=== PATIENT | female | born 1995 | race Caucasian/White ===

== ENCOUNTER 2018-07-22 05:56 | Inpatient (IN) | payer MEDICAID ==
[2018-07-22] MEDS ORDERED: OXYTOCIN 10 UNIT/ML VIAL ONE (06:14)
[2018-07-22] MEDS ORDERED: MISOPROSTOL 0.2 MG TABLET ONE (06:14)
[2018-07-22] MEDS ORDERED: LIDOCAINE 1% INJ-PF (10 MG/ML) 30 ML SDV ONE (06:14)
[2018-07-22] MEDS ORDERED: PENICILLIN G-K 5 MILLION UNIT VIAL ONE (06:14)
[2018-07-22] MEDS ORDERED: OXYTOCIN/NORMAL SALINE 20 UNIT/1,000 ML RTUINJ ONE (06:14)
[2018-07-22 06:30] LABS: ABSOLUTE EOSINOPHILS # (AUTO) 0.4 10^3/uL (0.0-0.6); ABSOLUTE LYMPHOCYTES (AUTO) 2.6 10^3/uL (0.5-4.7); ABSOLUTE MONOCYTES (AUTO) 0.9 10^3/uL (0.1-1.4); ABSOLUTE NEUT (AUTO) 6.7 10^3/uL (1.7-8.2); BASOPHILS % (AUTO) 0.4 % (0-2); EOSINOPHILS % (AUTO) 3.4 % (0-6); HEMATOCRIT 34.8 % (36.0-47.0); HEMOGLOBIN 11.6 g/dL (12.0-15.5); LYMPHOCYTES % (AUTO) 24.7 % (13-45); MEAN CORPUSCULAR HEMOGLOBIN 24.4 pg (27.0-33.4); MEAN CORPUSCULAR HGB CONC 33.4 g/dL (32.0-36.0); MEAN CORPUSCULAR VOLUME 73 fl (80-97); MONOCYTES % (AUTO) 8.3 % (3-13); PLATELET COUNT 146 10^3/uL (150-450); RED BLOOD COUNT 4.76 10^6/uL (3.72-5.28); RED CELL DISTRIBUTION WIDTH 16.8 % (11.5-14.0); SEGMENTED NEUTROPHILS % (AUTO) 63.2 % (42-78); TOTAL CELLS COUNTED % (AUTO) 100 %; WHITE BLOOD COUNT 10.6 10^3/uL (4.0-10.5)
--- NOTE | 2018-07-22 06:30 | Admission Physical ---
Datetime Report Generated by CPN: 07/22/2018 06:30 CURRENT ADMISSION Chief Complaint: Uterine Contractions Indication for Induction: Not Applicable Admit Impression : Term, Intrauterine Admit Plan: Admit to Unit; Initiate Labor Protocol ALLERGIES Medication Allergies: No Latex: No Latex Allergies OBSTETRICAL HISTORY EDC: 07/27/2018 00:00 : 2 Para: 1 Term: 1 Livin SEE RECORDS Alcohol: No Marijuana : No Cocaine: No Other Illicit Drugs: No Cigarettes: Never Smoker. [id number] PHYSICAL EXAM General: Normal HEENT: Normal Neurologic: Normal Thyroid: Normal Heart: Normal Lungs: Normal Breast: Normal Back: Normal Abdomen: Normal Genitourinary Exam: Normal Extremities: Normal DTRs: Normal Pelvic Type: Adequate Vital Signs: Reviewed; Within Normal Limits VAGINAL EXAM Dilatation: 8-9 Effacement: 90 Station: 0 Contraction Comments: q 2-3 MEMBRANES Membranes: Intact FETUS A EGA: 39.2 Monitoring: External US FHR- Baseline: 120s Variability: Moderate 6-25bpm Accelerations: 15X15 Decelerations: None Admit Comment: GBS positive PLANS FOR LABOR AND DELIVERY Pain Management: Epidural Feeding Preference: Breast Circumcision: N/A INFORMED CONSENT Signature: with User ID: [email or web address]
[2018-07-22 06:38] LABS: APPEARANCE,URINE CLOUDY; BILIRUBIN,URINE NEGATIVE (NEGATIVE); COLOR,URINE YELLOW; GLUCOSE, URINE NEGATIVE (NEGATIVE); KETONES,URINE NEGATIVE (NEGATIVE); LEUKOCYTE ESTERASE,URINE NEGATIVE (NEGATIVE); NITRITE,URINE NEGATIVE (NEGATIVE); PROTEIN,URINE 100 mg/dL (NEGATIVE); URINE SPECIFIC GRAVITY 1.014; UROBILINOGEN,URINE NEGATIVE mg/dL (<2.0)
[2018-07-22] MEDS ORDERED: PHENYLEPHRINE HCL INJ/PF 10 MG/1 ML SDV ONE (06:47)
[2018-07-22] MEDS ORDERED: BUPIVACAINE HCL 0.25 % INJ/PF (2.5 MG/1 ML) 30 ML VIAL ONE (06:48)
[2018-07-22] MEDS ORDERED: FENTANYL CITRATE INJ/PF 100 MCG/2 ML AMPUL ONE (06:48)
[2018-07-22] MEDS ORDERED: EPHEDRINE SULFATE INJ 50 MG/1 ML AMPULE ONE (06:48)
[2018-07-22 06:53] LABS: URINE AMPHETAMINES SCREEN NEGATIVE; URINE BARBITURATES SCREEN NEGATIVE; URINE BENZODIAZEPINES SCREEN NEGATIVE; URINE COCAINE SCREEN NEGATIVE; URINE MARIJUANA (THC) SCREEN NEGATIVE; URINE METHADONE SCREEN NEGATIVE; URINE PHENCYCLIDINE SCREEN NEGATIVE
[2018-07-22] MEDS ORDERED: LIDOCAINE 1.5%/EPINEPHRINE INJ-PF 30 ML SDV ONE (06:59)
[2018-07-22] MEDS ORDERED: FENTANYL/BUPIVACAINE/NS/PF 300 MCG/150 ML RTUINJ EPI ONE (07:10)
[2018-07-22] MEDS ORDERED: ZOLPIDEM TARTRATE 5 MG TABLET PO PRN (08:20)
[2018-07-22] MEDS ORDERED: OXYTOCIN/NORMAL SALINE 20 UNIT/1,000 ML RTUINJ IV PRN (08:20)
[2018-07-22] MEDS ORDERED: DIPH/PERTUSS(ACELL)/TETANUS VAC/PF 0.5 ML SYR (>=10YO) IM PRN (08:20)
[2018-07-22] MEDS ORDERED: BENZOCAINE/MENTHOL AEROSOL SPRAY 56 ML TOP PRN (08:20)
[2018-07-22] MEDS ORDERED: DIBUCAINE 1% OINTMENT 28 GM TP PRN (08:20)
[2018-07-22] MEDS ORDERED: ACETAMINOPHEN WITH CODEINE #3 TABLET PO PRN ×2 (08:20)
[2018-07-22] MEDS ORDERED: RINGERS SOLUTION,LACTATED 1,000 ML IV PRN (09:01)
--- NOTE | 2018-07-22 11:41 | Delivery Summary ---
Del Sum A-C Datetime Report Generated by CPN: 07/22/2018 11:41 DELIVERY PERSONNEL DELIVERY PERSONNEL: [id number] Delivery Doctor:: Samreen Nixon MD Labor and Delivery Nurse:: Nguyễn Shaw RN Nursery Nurse:: geeta Goodwin RN Nursery Nurse:: Shantal Bone RN Molding Cutter/PRINT LINE OPERATOR: Katherine Manjarrez, EDUCATIONAL FUNDRAISING DIRECTOR MATERNAL INFORMATION Delivery Anesthesia: Epidural Medications After Delivery: Pitocin Drip 20 Units/1000ml NSS Estimated Blood Loss (ml): 300 ml Maternal Complications: Precipitous Labor (<3hrs) Provider Comments: of a viable female at 0808 with an ALMA presentation; APGARS 8, 9; 1st degree right labial lac LABOR SUMMARY EDC: 07/27/2018 00:00 No. Babies in Womb: 1 Labor Anesthesia: Epidural LABOR INFORMATION Reason for Induction: Not Applicable Onset of Labor: 07/22/2018 05:00 Complete Dilatation: 07/22/2018 07:53 Group B Beta Strep: Positive Antibiotics # of Doses: 1 Antibiotics Time of Last Dose: 619 Name of Antibiotic Given: PCN Steroids Given: None Reason Steroids Not Administered: Not Applicable MEMBRANES Membranes Rupture Method: Artificial Rupture of Membranes: 07/22/2018 07:34 Length of Rupture (hr): 0.57 Amniotic Fluid Color: Clear Amniotic Fluid Amount: Moderate Amniotic Fluid Odor: None STAGES OF LABOR Stage 1 hr: 2 Stage 1 min: 53 Stage 2 hr: 0 Stage 2 min: 15 Stage 3 hr: 0 Stage 3 min: 3 Total Time in Labor hr: 3 Total Time in Labor min: 11 VAGINAL DELIVERY Episiotomy: None Laceration #1: Perineal Laceration Extension #1: First Degree Laceration Repair: Yes Laceration Repair Note: 2-0 chromic used to repair right labia majora--1st degree Sponge Count Correct: Yes Sharps Count Correct: Yes CSECTION DELIVERY Primary Indication: N/A Secondary Indication: N/A CSection Incidence: N/A Labor: N/A Elective: N/A CSection Incision: N/A BABY A INFORMATION Infant Delivery Date/Time: 07/22/2018 08:08 Method of Delivery: Vaginal Born in Route : No : N/A Forceps: N/A Vacuum Extraction: N/A Shoulder Dystocia : No PRESENTATION/POSITION BABY A Presentation: Cephalic Cephalic Presentation: Vertex Vertex Position: Left Occipital Anterior Breech Presentation: N/A PLACENTA INFORMATION BABY A Placenta Delivery Time : 07/22/2018 08:11 Placenta Method of Delivery: Expressed Placenta Status: Delivered SCORES BABY A Heart Rate 1 min: >100 bpm Resp Effort 1 min: Good Cry Reflex Irritability 1 min: Cough or Sneeze or Pulls Away Muscle Tone 1 min: Active Motion Color 1 min: Blue/Pale Resuscitation Effort 1 min: Tactile Stimulation SCORE 1 MIN: 8 Heart Rate 5 min: >100 bpm Resp Effort 5 min: Good Cry Reflex Irritability 5 min: Cough or Sneeze or Pulls Away Muscle Tone 5 min: Active Motion Color 5 min: Body [place], Extremities Blue SCORE 5 MIN: 9 INFANT INFORMATION BABY A Gestational Age at Delivery: 39.6 Gestational Status: Full Term- 39- 40.6 Weeks Outcome : Liveborn Infant Condition : Stable Sex: Female IDENTIFICATION BABY A Infant Verification Date/Time: 07/22/2018 08:37 ID Band Number: [id number] Mother's Name Verified: Yes RN Verifying Infant: T. Colin, RN and A. Rodriguez,RN WEIGHT/LENGTH BABY A Infant Birthweight (gm): 3894 Weight (lb): 8 Weight (oz): 9 Length (in): 21.00 Infant Length (cm): 53.34 CORD INFORMATION BABY A No. Cord Vessels: 3 Nuchal Cord : N/A Cord Blood Taken: Yes-For Eval (Mom's Blood Type - or O+) Infant Suction: None ASSESSMENT BABY A Skin to Skin: Yes Skin to Skin Time (min): 60 BABY B INFORMATION : N/A SIGNATURES Signature: with User ID: [email or web address]
[2018-07-22] MEDS: IBUPROFEN 800 MG TABLET PO SCH ×2 (15:03→21:19)
[2018-07-22] MEDS: FERROUS SULFATE 325 MG TABLET PO SCH ×2 (15:05→18:11)
[2018-07-22] MEDS: DOCUSATE SODIUM 100 MG CAPSULE PO SCH ×2 (15:05→18:11)
[2018-07-22] MEDS: PRENATAL VITAMIN W DHA CAPSULE PO SCH (15:05)
[2018-07-22] MEDS: SENNOSIDES/DOCUSATE 8.6-50 MG 1 EACH TABLET PO SCH (15:06)
[2018-07-23] MEDS ORDERED: MAG HYDROX/AL HYDROX/SIMETH SUSP 30 ML UDCUP ONE (03:24)
[2018-07-23] MEDS ORDERED: MAG HYDROX/AL HYDROX/SIMETH SUSP 30 ML UDCUP PO ONE (03:30)
[2018-07-23] MEDS: IBUPROFEN 800 MG TABLET PO SCH ×3 (06:25→22:57)
[2018-07-23 07:56] LABS: HEMATOCRIT 29.9 % (36.0-47.0); HEMOGLOBIN 10.1 g/dL (12.0-15.5); MEAN CORPUSCULAR HEMOGLOBIN 24.7 pg (27.0-33.4); MEAN CORPUSCULAR HGB CONC 33.6 g/dL (32.0-36.0); MEAN CORPUSCULAR VOLUME 74 fl (80-97); PLATELET COUNT 133 10^3/uL (150-450); RED BLOOD COUNT 4.07 10^6/uL (3.72-5.28); RED CELL DISTRIBUTION WIDTH 16.9 % (11.5-14.0); WHITE BLOOD COUNT 10.5 10^3/uL (4.0-10.5)
--- NOTE | 2018-07-23 10:10 | PDOC PROGRESS REPORT ---
Subjective-OB Progress Note for:: 07/23/18 - PP Day #1, doing well, no issues, O neg, rubella Immune Physical Exam (OB) Vital Signs: Temp Pulse Resp BP Pulse Ox 98.1 F 77 18 128/72 H 100 07/23/18 07:39 07/23/18 07:39 07/23/18 07:39 07/23/18 07:39 07/23/18 07:39 Intake & Output 07/22/18 07/23/18 07/24/18 06:59 06:59 06:59 Weight 79.5 kg - General General Appearance: Appears well, Alert In distress: None - PIH/Pre-Eclampsia DTR's: 1 + Clonus: Negative Headache: Absent Epigastric Pain: No Visual Changes: No - Lochia Lochia Amount: Small 10-25 ml Lochia Color: Rubra/Red - Abdomen Description: Soft, Round Hernia Present: No Fundal Description: Firm, Midline Fundal Height: u/u - u/2 - Respiratory Respiratory Status: No respiratory distress - Abdominal Inspection: Normal - Genitourinary Genitourinary Note: voiding - Extremities Upper extremity: Normal inspection Lower extremities: Normal inspection - Neurological Cognition: Normal Orientation: AAOx4 - Psychological Associated symptoms: Normal affect, Normal mood - Skin Skin Temperature: Warm Skin Moisture: Dry Objective-Diagnostic Laboratory: 07/23/18 07:46 07/23/18 07:46 WBC 10.5 RBC 4.07 Hgb 10.1 L Hct 29.9 L MCV 74 L MCH 24.7 L MCHC 33.6 RDW 16.9 H Plt Count 133 L Assessment and Plan(PN) - Assessment and Plan (1) (normal spontaneous vaginal delivery) Is this a current diagnosis for this admission?: Yes (2) Normal course Is this a current diagnosis for this admission?: Yes - Time Spent with Patient Time with patient: Less than 15 minutes - Disposition Anticipated Discharge: Home Within: within 24 hours
[2018-07-23] MEDS: FERROUS SULFATE 325 MG TABLET PO SCH ×2 (10:12→18:07)
[2018-07-23] MEDS: DOCUSATE SODIUM 100 MG CAPSULE PO SCH ×2 (10:12→18:07)
[2018-07-23] MEDS: SENNOSIDES/DOCUSATE 8.6-50 MG 1 EACH TABLET PO SCH (10:12)
[2018-07-23] MEDS: PRENATAL VITAMIN W DHA CAPSULE PO SCH (10:14)
[2018-07-24 00:35] VITALS: BP 127/68
[2018-07-24] MEDS: IBUPROFEN 800 MG TABLET PO SCH (06:59)
[2018-07-24] MEDS: PRENATAL VITAMIN W DHA CAPSULE PO SCH (09:54)
[2018-07-24] MEDS: DOCUSATE SODIUM 100 MG CAPSULE PO SCH (09:54)
[2018-07-24] MEDS: SENNOSIDES/DOCUSATE 8.6-50 MG 1 EACH TABLET PO SCH (09:54)
[2018-07-24] MEDS: FERROUS SULFATE 325 MG TABLET PO SCH (09:54)
--- NOTE | 2018-07-24 10:02 | PDOC DISCHARGE SUMMARY ---
Final Diagnosis Discharge Date: 07/24/18 - PP Day#2, doing well, , O negative, Rubella immune - Final Diagnosis (1) (normal spontaneous vaginal delivery) Is this a current diagnosis for this admission?: Yes (2) Normal course Is this a current diagnosis for this admission?: Yes Discharge Data - Discharge Medication Prescriptions: Ibuprofen [Motrin 800 mg Tablet] 800 mg PO Q8 #60 tablet Home Medications: Pnv No.95/Ferrous Fum/Folic AC [ Multivitamin Tablet] 1 each PO DAILY 07/22/18 Ibuprofen [Motrin 800 mg Tablet] 800 mg PO Q8 #60 tablet 07/24/18 Reason(s) for Admission: Onset of Labor Procedures: Ultrasound Intrapartum Procedure(s): Spontaneous Vaginal Delivery Complication(s): Laceration-Vaginal Laceration-Degree: 1st - Diagnosis Test Laboratory: Temp Pulse Resp BP Pulse Ox 98.8 F 68 18 127/68 H 97 07/23/18 20:00 07/23/18 20:00 07/23/18 20:00 07/23/18 20:00 07/23/18 20:00 07/22/18 07/22/18 07/23/18 06:05 06:20 07:46 RBC 4.76 4.07 Hgb 11.6 L 10.1 L Hct 34.8 L 29.9 L Urine Opiates Screen NEGATIVE - Discharge information/Instructions Discharge Activity: Activity As Tolerated, No Lifting Over 10 Pounds, Pelvic Rest Discharge Diet: As Tolerated, Regular Disposition: HOME, SELF-CARE Follow up with: [facility] in: 4, Weeks
== END 2018-07-24 13:00 | disposition home or self-care (01) | DRG 807 ==
LOC: LC 05:56 → LR 06:12 → 2S 11:23
PROVIDERS: ADMIT Obstetrics & Gynecology; ATTEND Obstetrics & Gynecology
PROC: 10E0XZZ Delivery of Products of Conception, External Approach (ICD-10-PCS; principal; 2018-07-22)
PROC: 0HQ9XZZ Repair Perineum Skin, External Approach (ICD-10-PCS; 2018-07-22)
PROC: 4A1HXCZ Monitoring of Products of Conception, Cardiac Rate, External Approach (ICD-10-PCS; 2018-07-22)
DX: O62.3 Precipitate labor (principal); Z37.0 Single live birth; O70.0 First degree perineal laceration during delivery; O99.824 Streptococcus B carrier state complicating childbirth; Z3A.39 39 weeks gestation of pregnancy
CPT/HCPCS: 36415; 80307; 81005; 85025; 85027; 86592; 86850; 86900; 86901; J2370; J2540; J2590; J3010; J3490

== ENCOUNTER 2018-07-25 04:19 | Emergency (ER) | payer MEDICAID ==
--- NOTE | 2018-07-25 04:58 | ER Document Report ---
ED General - General Chief Complaint: Vaginal Bleeding Stated Complaint: VAGINAL BLEEDING/CLOTTING Time Seen by Provider: 07/25/18 04:34 Mode of Arrival: Ambulatory Information source: Patient Notes: 23-year-old female day 3 presents with complaints of a mass hanging from her vagina that will not come out. Patient states that she has had mild vaginal bleeding since her spontaneous vaginal delivery 3 days ago but that this evening she went to the bathroom and noticed a mass hanging from her vagina. She states that she tried to pull on it but it would not move. Patient denies fever, chills, nausea, vomiting, increased abdominal pain. TRAVEL OUTSIDE OF THE [place] IN LAST 30 DAYS: No - HPI Onset: Just prior to arrival Onset/Duration: Sudden Quality of pain: Cramping Severity: Mild Associated symptoms: denies: Nausea, Vomiting Exacerbated by: Denies Relieved by: Denies Similar symptoms previously: No Recently seen / treated by doctor: No - Related Data Allergies/Adverse Reactions: No Known Allergies Allergy (Unverified 07/22/18 07:17) Past Medical History - General Information source: Patient, [facility] Records - Social History Smoking Status: Never Smoker Frequency of alcohol use: None Drug Abuse: None Lives with: Family Family History: Reviewed & Not Pertinent Patient has suicidal ideation: No Patient has homicidal ideation: No - Medical History Medical History: Negative Review of Systems - Review of Systems Notes: REVIEW OF SYSTEMS: CONSTITUTIONAL : Denies fever, chills, or sweats. Denies recent illness. Denies weight loss, recent hospitalizations. EENT: Denies visual changes, eye pain. Denies sore throat, oral lesions, difficulty swallowing. CARDIOVASCULAR: Denies chest pain. Denies palpitations. Denies lower extremity edema. RESPIRATORY: Denies cough. Denies shortness of breath, wheezing. GASTROINTESTINAL: Denies abdominal pain or distention. Denies nausea, vomiting, or diarrhea. Denies blood in vomitus, stools, or per rectum. Denies black, tarry stools. Denies constipation. GENITOURINARY: Denies difficulty urinating, painful urination, frequency, blood in urine, or vaginal discharge. MUSCULOSKELETAL: Denies back or neck pain or stiffness. Denies joint pain or swelling. SKIN: Denies rash, lesions or sores. HEMATOLOGIC : Denies easy bruising or bleeding. LYMPHATIC: Denies swollen glands. NEUROLOGICAL: Denies confusion or altered mental status. Denies loss of consciousness. Denies dizziness or lightheadedness. Denies headache. Denies weakness or paralysis. Denies problems difficulty with ambulation, slurred speech. Denies sensory loss, numbness, or tingling. Denies seizures. PSYCHIATRIC: Denies anxiety or stress. Denies depression, suicidal ideation, or homicidal ideation. Denies visual or auditory hallucinations. Physical Exam - Vital signs Vitals: Temp Pulse Resp BP Pulse Ox 97.9 F 125 H 20 131/84 H 99 07/25/18 04:24 07/25/18 04:24 07/25/18 04:24 07/25/18 04:24 07/25/18 04:24 - Notes Notes: PHYSICAL EXAMINATION: GENERAL: Well-appearing, well-nourished and in no acute distress. HEAD: Atraumatic, normocephalic. EYES: Pupils equal round and reactive to light, extraocular movements intact, conjunctiva are normal. ENT: Nares patent, oropharynx clear without exudates. Moist mucous membranes. NECK: Normal range of motion, supple without lymphadenopathy LUNGS: Breath sounds clear to auscultation bilaterally and equal. No wheezes rales or rhonchi. HEART: Regular rate and rhythm without murmurs ABDOMEN: Soft, nontender, nondistended abdomen. No guarding, no rebound. No masses appreciated. Female : Membranous placental-like mass with membrane extending into the cervix. Musculoskeletal: Normal range of motion, no pitting or edema. No cyanosis. NEUROLOGICAL: Cranial nerves grossly intact. Normal speech, normal gait. Normal sensory, motor exams PSYCH: Normal mood, normal affect. SKIN: Warm, Dry, normal turgor, no rashes or lesions noted. Course - Re-evaluation Re-evalutation: 20-year-old female day 3 presents with a mass hanging from her vagina. Patient states that she has been passing clots but this morning when she went to the bathroom she noticed a clot-like mass that would not come out when she pulled on it. Patient reports a normal spontaneous vaginal delivery 3 days ago here at [facility]. She denies any complications. She was discharged yesterday. 07/25/18 04:[address] Lord who is on-call for [facility] and he advised me to pull on the mass and if it did not come out easily to send the patient home and have her follow-up in the morning in his office. 07/25/18 05:41 I was able to successfully remove the mass after gentle traction was applied. Patient was evaluated for heavy bleeding afterwards. She was advised to follow- up in the clinic this morning. Mass sent for pathology. patient was reevaluated there is no extensive bleeding. She denies dizziness, lightheadedness, shortness of breath. Patient was evaluated and treated as appropriate for the patient's presenting symptoms and complaint, with consideration of any critical or life threatening conditions that may be associated with their obtained history and exam as noted above. All results were discussed with patient. Patient provided the opportunity to ask questions, and express concerns. Patient was educated on treatments based on their presumed diagnosis as noted above. At this time we will discharge the patient with return precautions and follow-up recommendations. Verbal discharge instructions given a the bedside. Medication warnings reviewed. Patient is in agreement with this plan and has verbalized understanding of return precautions. After careful consideration I feel that that patient can be safely discharged from the emergency department, they were advised to followup with a primary care physician in 2-3 days. Dictation on this chart was performed using voice recognition software and may result in unintended grammatical, spelling, syntax or errors. 07/25/18 06:32 - Vital Signs Vital signs: Temp Pulse Resp BP Pulse Ox 97.9 F 125 H 20 131/84 H 99 07/25/18 04:24 07/25/18 04:24 07/25/18 04:24 07/25/18 04:24 07/25/18 04:24 Discharge - Discharge Clinical Impression: Vaginal bleeding, Retained products of conception after delivery without hemorrhage Condition: Good Disposition: HOME, SELF-CARE Instructions: Vaginal Bleeding ([facility]) Additional Instructions: Please follow-up with [facility] this morning. I spoke to Dr. Lord regarding her situation and he advised to come into the office first thing. Referrals: NAMRATA ORELLANA MD [ACTIVE STAFF] - 07/25/18
[2018-07-25 07:16] VITALS: BP 112/85
== END 2018-07-25 07:21 | disposition home or self-care (01) ==
LOC: ER 04:19
DX: O73.1 Retained portions of placenta and membranes, without hemorrhage (principal); Z3A.00 Weeks of gestation of pregnancy not specified
CPT/HCPCS: 88305; 99283

== ENCOUNTER 2018-07-30 16:15 | Emergency (ER) | payer MEDICAID ==
--- NOTE | 2018-07-30 16:57 | ER Document Report ---
ED Medical Screen (RME) - General Chief Complaint: Abdominal Pain Stated Complaint: SIDE PAIN Time Seen by Provider: 07/30/18 16:50 Notes: 23-year-old female patient had a normal spontaneous vaginal delivery 8 days ago. She was seen in the emergency room 3 days ago with retained placenta, it was removed during speculum exam. She followed up in the office and an ultrasound showed that there was no remaining placental parts and D&C was not necessary. Patient reports today about 3:15 PM she had sudden onset of left lower quadrant abdominal pain that she states is a little better now than it was initially. She is breast-feeding. I have greeted and performed a rapid initial assessment of this patient. A comprehensive ED assessment and evaluation of the patient, analysis of test results and completion of the medical decision making process will be conducted by additional ED providers. TRAVEL OUTSIDE OF THE [place] IN LAST 30 DAYS: No - Related Data Allergies/Adverse Reactions: No Known Allergies Allergy (Unverified 07/22/18 07:17) Past Medical History Renal/ Medical History: Denies: Hx Peritoneal Dialysis Physical Exam - Vital signs Vitals: Temp Pulse Resp BP Pulse Ox 97.5 F 81 14 112/75 98 07/30/18 16:23 07/30/18 16:23 07/30/18 16:23 07/30/18 16:23 07/30/18 16:23 Course - Vital Signs Vital signs: Temp Pulse Resp BP Pulse Ox 97.5 F 81 14 112/75 98 07/30/18 16:23 07/30/18 16:23 07/30/18 16:23 07/30/18 16:23 07/30/18 16:23
[2018-07-30 17:26] LABS: ABSOLUTE BASOPHILS # (AUTO) 0.1 10^3/uL (0.0-0.2); ABSOLUTE EOSINOPHILS # (AUTO) 0.3 10^3/uL (0.0-0.6); ABSOLUTE LYMPHOCYTES (AUTO) 1.3 10^3/uL (0.5-4.7); ABSOLUTE MONOCYTES (AUTO) 0.7 10^3/uL (0.1-1.4); ABSOLUTE NEUT (AUTO) 8.1 10^3/uL (1.7-8.2); BASOPHILS % (AUTO) 0.7 % (0-2); EOSINOPHILS % (AUTO) 2.6 % (0-6); HEMATOCRIT 38.2 % (36.0-47.0); HEMOGLOBIN 12.4 g/dL (12.0-15.5); LYMPHOCYTES % (AUTO) 12.2 % (13-45); MEAN CORPUSCULAR HEMOGLOBIN 24.5 pg (27.0-33.4); MEAN CORPUSCULAR HGB CONC 32.4 g/dL (32.0-36.0); MEAN CORPUSCULAR VOLUME 76 fl (80-97); MONOCYTES % (AUTO) 6.4 % (3-13); PLATELET COUNT 250 10^3/uL (150-450); RED BLOOD COUNT 5.05 10^6/uL (3.72-5.28); RED CELL DISTRIBUTION WIDTH 18.2 % (11.5-14.0); SEGMENTED NEUTROPHILS % (AUTO) 78.1 % (42-78); TOTAL CELLS COUNTED % (AUTO) 100 %; WHITE BLOOD COUNT 10.4 10^3/uL (4.0-10.5)
[2018-07-30 17:44] LABS: ALANINE AMINOTRANSFERASE 28 U/L (9-52); ALBUMIN 4.2 g/dL (3.5-5.0); ALKALINE PHOSPHATASE 161 U/L (38-126); ANION GAP 7 (5-19); ASPARTATE AMINO TRANSFERASE 43 U/L (14-36); BILIRUBIN,DIRECT 0.2 mg/dL (0.0-0.4); BILIRUBIN,TOTAL 0.4 mg/dL (0.2-1.3); BLOOD UREA NITROGEN 18 mg/dL (7-20); CALCIUM 9.2 mg/dL (8.4-10.2); CARBON DIOXIDE 27 mmol/L (22-30); CHLORIDE 106 mmol/L (98-107); GLUCOSE 88 mg/dL (75-110); POTASSIUM 4.3 mmol/L (3.6-5.0); SODIUM 140.1 mmol/L (137-145); TOTAL PROTEIN 7.4 g/dL (6.3-8.2)
[2018-07-30 18:04] LABS: APPEARANCE,URINE SLIGHTLY-CLOUDY; BILIRUBIN,URINE NEGATIVE (NEGATIVE); COLOR,URINE YELLOW; GLUCOSE, URINE NEGATIVE (NEGATIVE); KETONES,URINE NEGATIVE (NEGATIVE); LEUKOCYTE ESTERASE,URINE MODERATE (NEGATIVE); NITRITE,URINE NEGATIVE (NEGATIVE); PROTEIN,URINE 100 mg/dL (NEGATIVE); UROBILINOGEN,URINE NEGATIVE mg/dL (<2.0)
--- NOTE | 2018-07-30 19:40 | ER Document Report ---
ED General - General Chief Complaint: Abdominal Pain Stated Complaint: SIDE PAIN Time Seen by Provider: 07/30/18 16:50 Primary Care Provider: LIO GOVEA MD [Primary Care Provider] - Follow up as needed Notes: Patient is a 23-year-old female without past medical history, no prior abdominal surgical history who had a normal spontaneous vaginal delivery 8 days ago. She was seen in the emergency room 3 days ago with retained placenta, it was removed during speculum exam. She followed up in the office and an ultrasound showed that there was no remaining placental parts and D&C was not necessary. Patient reports today about 3:15 PM she had sudden onset of left lower quadrant abdominal pain that she states is a little better now than it was initially. This did start after she had been breast-feeding for approximately 20 minutes. She states that when the pain was present it was a stabbing, moderate to severe pain in her left lower and suprapubic regions of her abdomen. States the pain is eventually resolved at this time. She has not taken anything to treat the pain. No history of similar pain in the past. Has not seen her CERTIFIED MASSAGE THERAPIST regarding today's concerns. Does continue to have vaginal bleeding. Denies dysuria. No vomiting, fever or constitutional symptoms. TRAVEL OUTSIDE OF THE [place] IN LAST 30 DAYS: No - Related Data Allergies/Adverse Reactions: No Known Allergies Allergy (Unverified 07/22/18 07:17) Past Medical History - General Information source: Patient - Social History Smoking Status: Never Smoker Chew tobacco use (# tins/day): No Frequency of alcohol use: None Drug Abuse: None Lives with: Family Family History: Reviewed & Not Pertinent Patient has suicidal ideation: No Patient has homicidal ideation: No Renal/ Medical History: Denies: Hx Peritoneal Dialysis Review of Systems - Review of Systems Notes: Constitutional: Negative for fever. HENT: Negative for sore throat. Eyes: Negative for visual changes. Cardiovascular: Negative for chest pain. Respiratory: Negative for shortness of breath. Gastrointestinal: Positive for lower abdominal pain Genitourinary: Positive for vaginal bleeding Musculoskeletal: Negative for back pain. Skin: Negative for rash. Neurological: Negative for headaches, weakness or numbness. 10 point ROS negative except as marked above and in HPI. Physical Exam - Vital signs Vitals: Temp Pulse Resp BP Pulse Ox 97.5 F 81 14 112/75 98 07/30/18 16:23 07/30/18 16:23 07/30/18 16:23 07/30/18 16:23 07/30/18 16:23 Interpretation: Normal Notes: PHYSICAL EXAMINATION: GENERAL: Well-appearing, well-nourished and in no acute distress. HEAD: Atraumatic, normocephalic. EYES: Pupils equal round and reactive to light, extraocular movements intact, sclera anicteric, conjunctiva are normal. ENT: nares patent, oropharynx clear without exudates. Moist mucous membranes. NECK: Normal range of motion, supple without lymphadenopathy LUNGS: Breath sounds clear to auscultation bilaterally and equal. No wheezes rales or rhonchi. HEART: Regular rate and rhythm without murmurs ABDOMEN: Soft, mild tenderness to the left adnexa and left lower quadrant, norm oactive bowel sounds. No guarding, no rebound. No masses appreciated. EXTREMITIES: Normal range of motion, no pitting or edema. No cyanosis. NEUROLOGICAL: No focal neurological deficits. Moves all extremities spontaneously and on command. PSYCH: Normal mood, normal affect. SKIN: Warm, Dry, normal turgor, no rashes or lesions noted. Course - Re-evaluation Re-evalutation: 07/30/18 19:38 Presentation of a well-appearing 23-year-old female in no acute distress complaining of mild left lower abdominal pain that started earlier today and has now effectively resolved. On exam she has some very mild tenderness to the left adnexa and left lower quadrant although no rebound or guarding. She is otherwise extremely well in appearance, attending to her 2 children at the time of my exam. Laboratories are unremarkable. Urinalysis likely contaminated secondary to ongoing vaginal bleeding. Patient has already had an ultrasound confirming no ongoing retained products. Suspect most likely symptomology is uterine contractions secondary to breast-feeding. Alternative consideration would include a more serious pathology such as PID, tubal ovarian abscess or ovarian torsion although these diagnoses seem extremely unlikely given the patient denies any current pain and has minimal to no pain on examination. She also has no fever, constitutional symptoms, tachycardia or leukocytosis. I did discuss the possible diagnostic test of a transvaginal ultrasound to further clarify versus outpatient follow-up and symptomatic management at home as well as clear return precautions. Patient did elect to follow-up as an outpatient and understands clear that should her pain recur or worsen she needs to return to the emergency department immediately. At this time will discharge with return precautions and follow-up recommendations. Verbal discharge instructions given a the bedside and opportunity for questions given. Medication warnings reviewed. Patient is in agreement with this plan and has verbalized understanding of return precautions and the need for primary care follow-up in the next 24-72 hours. - Vital Signs Vital signs: Temp Pulse Resp BP Pulse Ox 97.5 F 81 14 112/75 98 07/30/18 16:23 07/30/18 16:23 07/30/18 16:23 07/30/18 16:23 07/30/18 16:23 - Laboratory Result Diagrams: 07/30/18 17:00 07/30/18 17:00 Laboratory results interpreted by me: 07/30/18 07/30/18 07/30/18 17:00 17:00 17:05 MCV 76 L MCH 24.5 L RDW 18.2 H Seg Neutrophils % 78.1 H Lymphocytes % 12.2 L AST 43 H Alkaline Phosphatase 161 H Urine Protein 100 H Urine Blood LARGE H Ur Leukocyte Esterase MODERATE H Discharge - Discharge Clinical Impression: Left lower quadrant abdominal pain of unknown etiology Condition: Good Disposition: HOME, SELF-CARE Additional Instructions: You have been seen in the Emergency Department (ED) for abdominal pain. Your evaluation did not identify a clear cause of your symptoms but was generally reassuring. Your pain could alternatively be due to uterine contractions from breast-feeding. Please follow up with your doctor as soon as possible regarding today's emergent visit and the symptoms that are bothering you. Return to the ED if your abdominal pain worsens or fails to improve, you are unable to tolerate fluids due to vomiting, fever greater than 101, or other symptoms that concern you. Referrals: LIO GOVEA MD [Primary Care Provider] - Follow up as needed
[2018-07-30 19:50] VITALS: BP 127/74
== END 2018-07-30 19:49 | disposition home or self-care (01) ==
LOC: ER 16:15
DX: O90.89 Other complications of the puerperium, not elsewhere classified (principal); R10.32 Left lower quadrant pain; O72.2 Delayed and secondary postpartum hemorrhage
CPT/HCPCS: 36415; 80053; 81001; 85025; 99284

== ENCOUNTER 2019-09-26 15:09 | Emergency (ER) | payer MEDICAID, OTHER ==
[2019-09-26] MEDS ORDERED: MECLIZINE HCL 25 MG TABLET PO ONE (15:27)
[2019-09-26] MEDS ORDERED: ONDANSETRON 4 MG TAB.RAPDIS PO ONE (15:27)
--- NOTE | 2019-09-26 15:29 | ER Document Report ---
ED Medical Screen (RME) - General Chief Complaint: Vertigo Stated Complaint: DIZZINESS Time Seen by Provider: 09/26/19 15:21 Primary Care Provider: LIO GOVEA MD [Primary Care Provider] - Follow up as needed Notes: Patient is a 24-year-old female presents emergency department with a chief complaint of dizziness. Patient states that her dizziness started yesterday. She states that when she moves her head she feels like the room is spinning. She had one episode of vomiting yesterday. Denies any cough or fever. States that she has had some sinus congestion for the past couple of days. Exam: S1, S2. Lung sounds clear throughout. I have greeted and performed a rapid initial assessment of this patient. A comprehensive ED assessment and evaluation of the patient, analysis of test results and completion of medical decision making process will be conducted by an additional ED providers. TRAVEL OUTSIDE OF THE [place] IN LAST 30 DAYS: No - Related Data Allergies/Adverse Reactions: No Known Allergies Allergy (Unverified 07/22/18 07:17) Past Medical History Renal/ Medical History: Denies: Hx Peritoneal Dialysis Physical Exam - Vital signs Vitals: Temp Pulse Resp BP Pulse Ox 98.2 F 67 16 122/67 100 09/26/19 15:14 09/26/19 15:14 09/26/19 15:14 09/26/19 15:14 09/26/19 15:14 Course - Vital Signs Vital signs: Temp Pulse Resp BP Pulse Ox 98.2 F 67 16 122/67 100 09/26/19 15:14 09/26/19 15:14 09/26/19 15:14 09/26/19 15:14 09/26/19 15:14 Doctor's Discharge - Discharge Referrals: LIO GOVEA MD [Primary Care Provider] - Follow up as needed
[2019-09-26] MEDS ORDERED: NORMAL SALINE 1000 ML 1,000 ML IV ONE (16:27)
[2019-09-26 16:35] LABS: ABSOLUTE EOSINOPHILS # (AUTO) 0.3 10^3/uL (0.0-0.6); ABSOLUTE LYMPHOCYTES (AUTO) 1.4 10^3/uL (0.5-4.7); ABSOLUTE MONOCYTES (AUTO) 0.4 10^3/uL (0.1-1.4); BASOPHILS % (AUTO) 0.8 % (0-2); EOSINOPHILS % (AUTO) 5.3 % (0-6); HEMATOCRIT 42.9 % (36.0-47.0); HEMOGLOBIN 14.3 g/dL (12.0-15.5); LYMPHOCYTES % (AUTO) 22.4 % (13-45); MEAN CORPUSCULAR HEMOGLOBIN 26.6 pg (27.0-33.4); MEAN CORPUSCULAR HGB CONC 33.4 g/dL (32.0-36.0); MEAN CORPUSCULAR VOLUME 80 fl (80-97); MONOCYTES % (AUTO) 6.1 % (3-13); PLATELET COUNT 192 10^3/uL (150-450); RED BLOOD COUNT 5.37 10^6/uL (3.72-5.28); RED CELL DISTRIBUTION WIDTH 15.1 % (11.5-14.0); SEGMENTED NEUTROPHILS % (AUTO) 65.4 % (42-78); TOTAL CELLS COUNTED % (AUTO) 100 %; WHITE BLOOD COUNT 6.1 10^3/uL (4.0-10.5)
[2019-09-26 16:48] LABS: ALBUMIN 4.6 g/dL (3.5-5.0); ALKALINE PHOSPHATASE 81 U/L (38-126); ANION GAP 8 (5-19); ASPARTATE AMINO TRANSFERASE 25 U/L (14-36); BILIRUBIN,DIRECT 0.2 mg/dL (0.0-0.4); BILIRUBIN,TOTAL 0.8 mg/dL (0.2-1.3); BLOOD UREA NITROGEN 10 mg/dL (7-20); CALCIUM 9.5 mg/dL (8.4-10.2); CARBON DIOXIDE 28 mmol/L (22-30); CHLORIDE 101 mmol/L (98-107); GLUCOSE 101 mg/dL (75-110); POTASSIUM 3.8 mmol/L (3.6-5.0); TOTAL PROTEIN 8.2 g/dL (6.3-8.2)
[2019-09-26 16:53] LABS: AMORPHOUS SEDIMENT,URINE TRACE /HPF; APPEARANCE,URINE CLOUDY; BILIRUBIN,URINE NEGATIVE (NEGATIVE); COLOR,URINE YELLOW; GLUCOSE, URINE NEGATIVE (NEGATIVE); KETONES,URINE NEGATIVE (NEGATIVE); LEUKOCYTE ESTERASE,URINE NEGATIVE (NEGATIVE); NITRITE,URINE NEGATIVE (NEGATIVE); PROTEIN,URINE 30 mg/dL (NEGATIVE); URINE SPECIFIC GRAVITY 1.025
--- NOTE | 2019-09-26 17:05 | ER Document Report ---
ED General - General Chief Complaint: Vertigo Stated Complaint: DIZZINESS Time Seen by Provider: 09/26/19 15:21 Primary Care Provider: LIO GOVEA MD [EMERITUS] - Follow up as needed Notes: Patient is a 24-year-old female with no significant past medical history who presents to the emergency department chief complaint of dizziness who presents to the emergency department the chief complaint of the same. The patient reports about a month ago she was experiencing some sinus pressure and congestion. She states that wax and wane. She states last week she noticed some pain and pressure in the left ear and tenderness to the postauricular area on the left. She states that has since resolved but she has had ongoing intermittent episodes of dizziness that are often worse with changes in position. She describes it as if the room is spinning around her. She relates it to having too much to drink and lying down and feeling the room spinning around you. She states is associated with some nausea but infrequent vomiting. She does admit to some mild ongoing ethmoid area sinus pressure. Denies any known sick contacts or recent travel. Denies any sore throat, cough, shortness of breath or chest pain. TRAVEL OUTSIDE OF THE [place] IN LAST 30 DAYS: No - Related Data Allergies/Adverse Reactions: No Known Allergies Allergy (Unverified 07/22/18 07:17) Past Medical History - Social History Smoking Status: Never Smoker Family History: Reviewed & Not Pertinent Patient has suicidal ideation: No Patient has homicidal ideation: No Renal/ Medical History: Denies: Hx Peritoneal Dialysis Review of Systems - Review of Systems Neurological/Psychological: Other - Dizziness -: Yes All other systems reviewed and negative Physical Exam - Vital signs Vitals: Temp Pulse Resp BP Pulse Ox 98.2 F 67 16 122/67 100 09/26/19 15:14 09/26/19 15:14 09/26/19 15:14 09/26/19 15:14 09/26/19 15:14 - General General appearance: Appears well, Alert In distress: None - HEENT Head: Normocephalic, Atraumatic Eyes: Normal Conjunctiva: Normal Extraocular movements intact: Yes Eyelashes: Normal Pupils: PERRL Ears: Normal External canal: Normal Tympanic membrane: Bulging - Bilateral, noninjected Sinus: Other - Bilateral nasal turbinate edema and erythema, worse on the left Mouth/Lips: Normal Mucous membranes: Moist Pharynx: Normal Neck: Normal - Respiratory Respiratory status: No respiratory distress Chest status: Nontender Breath sounds: Normal Chest palpation: Normal - Cardiovascular Rhythm: Regular Heart sounds: Normal auscultation Murmur: No - Abdominal Inspection: Normal Distension: No distension Bowel sounds: Normal Tenderness: Nontender Organomegaly: No organomegaly - Back Back: No: CVA tenderness - Extremities General upper extremity: Normal inspection, Nontender, Normal color, Normal ROM, Normal temperature General lower extremity: Normal inspection, Nontender, Normal color, Normal ROM, Normal temperature, Normal weight bearing. No: Luiz's sign - Neurological Neuro grossly intact: Yes Cognition: Normal Orientation: AAOx4 [place] Coma Scale Eye Opening: Spontaneous Sybil Coma Scale Verbal: Oriented Sybil Coma Scale Motor: Obeys Commands Sybil Coma Scale Total: 15 Speech: Normal Motor strength normal: LUE, RUE, LLE, RLE Sensory: Normal - Psychological Associated symptoms: Normal affect, Normal mood - Skin Skin Temperature: Warm Skin Moisture: Dry Skin Color: Normal Course - Re-evaluation Re-evalutation: 09/26/19 18:14 Reevaluation at this time, patient states her symptoms have significantly improved. Her work-up is largely unremarkable. Will send home with meclizine, Zofran as needed as well as Flonase and Claritin-D. Counseled her at length regarding the importance of outpatient follow-up and advised that she return here or any ER immediately with any new, persistent or worsening symptoms. She verbalized understood and agreed. - Vital Signs Vital signs: Temp Pulse Resp BP Pulse Ox 98.2 F 67 16 122/67 100 09/26/19 15:14 09/26/19 15:14 09/26/19 15:14 09/26/19 15:14 09/26/19 15:14 - Laboratory Result Diagrams: 09/26/19 16:12 09/26/19 16:12 Laboratory results interpreted by me: 09/26/19 09/26/19 16:12 16:12 RBC 5.37 H MCH 26.6 L RDW 15.1 H Urine Protein 30 H Urine Urobilinogen 2.0 H Discharge - Discharge Clinical Impression: Rhinosinusitis, Dizziness Condition: Stable Disposition: HOME, SELF-CARE Instructions: Dizziness ([facility]) Additional Instructions: Follow-up with your regular doctor in 2 to 3 days for reevaluation. Return here or any ER immediately with any new, persistent or worsening symptoms. Prescriptions: Loratadine/Pseudoephedrine [Claritin-D 24 Hour Tablet] 1 each PO DAILY #15 tab.er.24h Fluticasone Propionate [Flonase Nasal [place] 50 Mcg/[place] 16 gm] 1 spray NASL Q12 #1 inhaler Meclizine HCl 50 mg PO DAILY PRN #15 tablet PRN Reason: Ondansetron [Zofran Odt 4 mg Tablet] 4 mg PO Q8 PRN #15 tab.rapdis PRN Reason: Referrals: LIO GOVEA MD [EMERITUS] - Follow up as needed
[2019-09-26 18:45] VITALS: BP 108/64
--- NOTE | 2019-09-26 18:57 | EKG REPORT ---
SEVERITY:- NORMAL ECG - SINUS RHYTHM : Confirmed by: Nato Anderson MD 26-Sep-2019 18:56:31
== END 2019-09-26 18:43 | disposition home or self-care (01) ==
LOC: ER 15:09
DX: J32.9 Chronic sinusitis, unspecified (principal); R42 Dizziness and giddiness; R51 Headache; R09.81 Nasal congestion; H92.02 Otalgia, left ear; R11.0 Nausea
CPT/HCPCS: 93005; 99284; 96360; 36415; 84703; 85025; 80053; 81001; 93010; S0119; J7030

== ENCOUNTER 2019-10-10 23:37 | Emergency (ER) | payer OTHER ==
[2019-10-10] MEDS ORDERED: ONDANSETRON 4 MG TAB.RAPDIS PO ONE (23:59)
[2019-10-11] MEDS ORDERED: NORMAL SALINE 1000 ML 1,000 ML IV ONE (00:39)
[2019-10-11] MEDS ORDERED: METOCLOPRAMIDE HCL INJ/PF 10 MG/2 ML SDV IV ONE (00:39)
[2019-10-11] MEDS ORDERED: DIPHENHYDRAMINE HCL 50 MG/ML VIAL IV ONE (00:39)
[2019-10-11] MEDS ORDERED: KETOROLAC TROMETHAMINE INJ/PF 30 MG/1 ML SDV IV ONE (00:39)
--- NOTE | 2019-10-11 00:40 | ER Document Report ---
ED General - General Chief Complaint: Headache Stated Complaint: HEADACHE Time Seen by Provider: 10/11/19 00:31 Primary Care Provider: TICO THOMAS MD [NO LOCAL MD] - Follow up as needed HOSEA BERMEO MD [ACTIVE STAFF] - Follow up as needed Mode of Arrival: Ambulatory Information source: Patient TRAVEL OUTSIDE OF THE [place] IN LAST 30 DAYS: No - HPI Onset: Other - Headache started on 10/09/19 Onset/Duration: Gradual Quality of pain: Pressure Severity: Severe Pain Level: 5 Associated symptoms: Nausea, Vomiting, Other - photophobia, phonophobia Exacerbated by: Other - light and loud noises Relieved by: Other - Tylenol Similar symptoms previously: No Recently seen / treated by doctor: Yes - patient seen in the ER on 09/26/19 for vertigo Notes: 24 year old female with a history of migraine headaches here in the ER for concern of a migraine headache for the last 2 days. The patient says she noticed the headache coming on gradually 2 days ago. The patient endorses nausea, vomiting, photophobia, and phonophobia. The patient took Tylenol and one of her husbands Sumatriptan tablets at home with minimal relief. The patient tells me she has been having sinus issues recently and she was just seen in this ER on 09/25/18 for vertigo. The patient says that had gone away but she recently had about of vertigo which she thinks was triggered by a cup of coffee. - Related Data Allergies/Adverse Reactions: No Known Allergies Allergy (Unverified 07/22/18 07:17) Home Medications: nasal spray. tylenol. claritin Past Medical History - General Information source: Patient - Social History Smoking Status: Never Smoker Frequency of alcohol use: Occasional Drug Abuse: None Lives with: Family Family History: Reviewed & Not Pertinent Patient has suicidal ideation: No Patient has homicidal ideation: No Renal/ Medical History: Denies: Hx Peritoneal Dialysis Review of Systems - Review of Systems Constitutional: No symptoms reported EENT: No symptoms reported Cardiovascular: No symptoms reported Respiratory: No symptoms reported Gastrointestinal: Nausea, Vomiting Genitourinary: No symptoms reported Female Genitourinary: No symptoms reported Musculoskeletal: No symptoms reported Skin: No symptoms reported Hematologic/Lymphatic: No symptoms reported Neurological/Psychological: Headaches - with photophobia and phonophobia -: Yes All other systems reviewed and negative Physical Exam - Vital signs Vitals: Temp Pulse BP Pulse Ox 98.7 F 135 H 118/72 100 10/10/19 23:42 10/10/19 23:42 10/10/19 23:42 10/10/19 23:42 - Notes Notes: GENERAL: somewhat ill-appearing due to her headache, well-nourished, sitting in a dark room. HEAD: Atraumatic, normocephalic. EYES: Pupils equal round and reactive to light, extraocular movements intact, sclera anicteric, conjunctiva are normal. ENT: TMs normal, nares patent, oropharynx clear without exudates. Moist mucous membranes. NECK: Normal range of motion, supple without lymphadenopathy or JVD. LUNGS: Breath sounds clear to auscultation bilaterally and equal. No wheezes rales or rhonchi. HEART: Regular rate and rhythm without murmurs, rubs or gallops. ABDOMEN: Soft, nontender, normoactive bowel sounds. No guarding, no rebound. No masses appreciated. EXTREMITIES: Normal range of motion, no pitting or edema. No clubbing or cyanosis. NEUROLOGICAL: Cranial nerves II through XII grossly intact. Normal speech, normal gait. PSYCH: Normal mood, normal affect. SKIN: Warm, Dry, normal turgor, no rashes or lesions noted. Course - Re-evaluation Re-evalutation: 10/11/19 02:03 The patient came to the ER for a headache which she thought was initially a migraine headache. She said the headache was 10/10 on ER arrival. The patient was treated with IV Toradol, IV Reglan, and IV Benadryl with moderate improvement of her pain (down to 6/10). The more the patient thought about her previous headaches the more she thought the headache today seemed different than previous ones (more intense, more in the back of her head). The patient has no neck stiffness on exam and a negative Kernig's sign and Brudzinski's sign. Since patient has never had imaging of her head before and since patient's headache did not improve much with treatment, will obtain a head CT and treat with Fioricet, Decadron, and Morphine and reassess the patient. Patient signed out to the other ER Doctor at shift change. 10/11/19 02:[address] Head shows no acute process and patient's headache has improved with further treatment, patient will be safe for outpatient follow up with a PCP and/or Neurology. - Vital Signs Vital signs: Temp Pulse Resp BP Pulse Ox 98.7 F 135 H 24 H 129/71 H 99 10/10/19 23:42 10/10/19 23:42 10/11/19 01:01 10/11/19 01:00 10/11/19 01:01 - Laboratory Result Diagrams: 10/11/19 00:49 10/11/19 00:49 Discharge - Discharge Clinical Impression: Migraine Qualifiers: Migraine type: unspecified Status migrainosus presence: without status migrainosus Intractability: not intractable Qualified Code(s): G43.909 - Migraine, unspecified, not intractable, without status migrainosus Nausea & vomiting Qualifiers: Vomiting type: unspecified Vomiting Intractability: non-intractable Qualified Code(s): R11.2 - Nausea with vomiting, unspecified Condition: Stable Disposition: HOME, SELF-CARE Instructions: Migraine Headache ([facility]) Additional Instructions: Use Motrin for headaches in combination with Benadryl. Also try the prescribed Fioricet. Follow up with your primary care doctor or with a Neurologist (both are listed in your discharge paperwork). Prescriptions: Butalb/Acetaminophen/Caffeine [Fioricet (50-325-40 mg) Tablet] 1 tab PO Q8H #15 tab Referrals: TICO THOMAS MD [NO LOCAL MD] - Follow up as needed HOSEA BERMEO MD [ACTIVE STAFF] - Follow up as needed
[2019-10-11] MEDS ORDERED: BUTALB/ACETAMINOPHEN/CAFFEINE 1 TAB EACH PO ONE (01:22)
[2019-10-11] MEDS ORDERED: MORPHINE SULFATE 10 MG/ML INJ IV ONE (02:02)
[2019-10-11] MEDS ORDERED: DEXAMETHASONE SOD PHOS INJ 10 MG/1 ML VIAL IV ONE (02:16)
[2019-10-11 02:17] LABS: ABSOLUTE LYMPHOCYTES (AUTO) 0.4 10^3/uL (0.5-4.7); ABSOLUTE MONOCYTES (AUTO) 0.4 10^3/uL (0.1-1.4); ABSOLUTE NEUT (AUTO) 5.3 10^3/uL (1.7-8.2); BASOPHILS % (AUTO) 0.2 % (0-2); EOSINOPHILS % (AUTO) 0.4 % (0-6); HEMOGLOBIN 14.6 g/dL (12.0-15.5); LYMPHOCYTES % (AUTO) 6.6 % (13-45); MEAN CORPUSCULAR HEMOGLOBIN 27.4 pg (27.0-33.4); MEAN CORPUSCULAR HGB CONC 34.8 g/dL (32.0-36.0); MEAN CORPUSCULAR VOLUME 79 fl (80-97); MONOCYTES % (AUTO) 6.2 % (3-13); PLATELET COUNT 162 10^3/uL (150-450); RED BLOOD COUNT 5.34 10^6/uL (3.72-5.28); RED CELL DISTRIBUTION WIDTH 14.9 % (11.5-14.0); SEGMENTED NEUTROPHILS % (AUTO) 86.6 % (42-78); TOTAL CELLS COUNTED % (AUTO) 100 %; WHITE BLOOD COUNT 6.1 10^3/uL (4.0-10.5)
[2019-10-11 02:20] LABS: ANION GAP 9 (5-19); BLOOD UREA NITROGEN 9 mg/dL (7-20); CALCIUM 9.4 mg/dL (8.4-10.2); CARBON DIOXIDE 23 mmol/L (22-30); CHLORIDE 104 mmol/L (98-107); GLUCOSE 115 mg/dL (75-110); POTASSIUM 4.1 mmol/L (3.6-5.0)
[2019-10-11 02:56] LABS: APPEARANCE,URINE SLIGHTLY-CLOUDY; BILIRUBIN,URINE NEGATIVE (NEGATIVE); COLOR,URINE YELLOW; GLUCOSE, URINE NEGATIVE (NEGATIVE); KETONES,URINE 80 mg/dL (NEGATIVE); LEUKOCYTE ESTERASE,URINE NEGATIVE (NEGATIVE); NITRITE,URINE NEGATIVE (NEGATIVE); PROTEIN,URINE 30 mg/dL (NEGATIVE); URINE SPECIFIC GRAVITY 1.029
--- NOTE | 2019-10-11 04:13 | RADIOLOGY REPORT (SQ) ---
EXAM DESCRIPTION: CT HEAD WITHOUT IV CONTRAST COMPLETED DATE/TME: 10/11/2019 02:00 CLINICAL HISTORY: 24 years Female, eval for cause of headache COMPARISON: None. TECHNIQUE: No contrast. Coronal and sagittal reformat. This exam was performed according to our departmental dose-optimization program, which includes automated exposure control, adjustment of the mA and/or kV according to patient size and/or use of iterative reconstruction technique. FINDINGS: No hemorrhage or infarct. No mass, mass effect, or midline shift. Small right maxillary mucosal thickening. Brain and extra-axial structures appear intact. IMPRESSION: Normal CT of the head.
[2019-10-11] MEDS ORDERED: ONDANSETRON ODT 4 MG TAB (6 TAB/ER DISP) PO PRN (04:37)
[2019-10-11 04:51] VITALS: BP 93/55
== END 2019-10-11 05:01 | disposition home or self-care (01) ==
LOC: ER 23:37
DX: G43.909 Migraine, unspecified, not intractable, without status migrainosus (principal); R11.2 Nausea with vomiting, unspecified; H53.149 Visual discomfort, unspecified; R42 Dizziness and giddiness; Z79.899 Other long term (current) drug therapy
CPT/HCPCS: 99284; 96361; 96374; 96375; 36415; 84703; 85025; 80048; 81001; 70450; J3490; J1200; S0119; J1885; J2765; J2270; J7030; J1100

== ENCOUNTER → 2020-06-11 | Outpatient (CLI) | payer OTHER ==
--- NOTE | 2020-06-11 13:53 | ER [facility] ASSESSMENT REPORT ---
Intake - In the Last 14 days Have you traveled outside [place]?: No Have you been in close contact with someone CONFIRMED: No Worked in Healthcare?: Yes - Symptoms Subjective Fever([place] feverish): No Chills: No Muscule Aches: No Runny Nose: No Sore Throat: Yes Cough (New or worsening chronic cough): No Shortness of breath: No Nausea or Vomiting: No Headache: Yes Abdominal Pain: No Diarrhea(3 or more loose stools in last 24 hours): No - Do you have any of the following Chronic lung disease: Asthma or emphysema or COPD: No Cystic Fibrosis: No Diabetes: No High Blood Pressure: No Cardiovascular Disease: No Chronic Kidney Disease: No Chronic Liver Disease: No Chronic blood disorder like Sickle Cell Disease: No Weak immune system due to disease or medication: No Neurologic condition that limits movement: No Developmental delay - Moderate to Severe: No Recent (within past 2 weeks) or current : No Morbid Obesity (>100 pounds over ideal weight): No - Objective Temperature: 98.8 F Pulse Rate: 82 Respiratory Rate: 16 Blood Pressure: 118/87 O2 Sat by Pulse Oximetry: 99 Objective: Given above, testing performed: If Testing Performed: Test Specimen Type Sent to General - General Information source: Patient Notes: Patient presents to the [facility] for screening for coronavirus. 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 - Related Data Allergies/Adverse Reactions: No Known Allergies Allergy (Unverified 07/22/18 07:17) Past Medical History - General Information source: Patient - Social History Smoking Status: Never Smoker Family History: Reviewed & Not Pertinent - Medical History Medical History: Negative Renal/ Medical History: Denies: Hx Peritoneal Dialysis Past Surgical History: Reports: Hx Oral Surgery Physical Exam - Notes Notes: The patient was evaluated during the global Covid 19 pandemic, and that diagnosis was suspected/considered upon their initial presentation. Their evaluation and testing was consistent with current guidelines for patients who present with complaints or symptoms that may be related to Covid 19. Full physical exam could not be performed due to covid 19 isolation protocols. Constitutional: Nontoxic appearance, no acute distress Eyes: Nonicteric, extraocular movements intact, sclera clear Cardiovascular: Heart rate and rhythm regular Respiratory: Breath sounds clear bilaterally, nonlabored breathing, no use of accessory muscles, no tachypnea Gastrointestinal: Abdomen not distended Muculoskeletal: Moves all extremities well Skin: Normal color Neuro: Awake alert oriented, normal speech Psych: Normal mood and affect Diagnostic Results Laboratory Results: Patient presents with upper respiratory symptoms worrisome for possible Covid 19. Patient does not have emergency worrying symptoms such as difficulty breathing, shortness of breath, chest pain, pressure, confusion or cyanosis. Patient appears suitable for discharge as they are not of an advanced age, do not have any chronic medical conditions such as diabetes, CAD, immune deficiency, chronic lung disease or chronic kidney disease. Patient's vital signs are stable and patient is nontoxic in appearance. Good return precautions have been discussed with patient, patient verbalized understanding and is agreeable with discharge plan of care at this time. Patient Education/Counseling Counseling/Education: Patient was provided with discharge information including: As a person under investigation for Covid 19, the [facility] and Human Services, division of public health advises you to adhere to the following guidance until your test results are reported to you. If your test result is positive, you will receive additional information from your provider and your local health department at that time. Remain at home until you are cleared by the health provider or public health authorities. Keep a log of visitors to your home, notify any visitors to your home of your isolation status. If you plan to move to a new address or leave the county, notify the local health department in your County. Call your doctor or seek care if you have an urgent medical need. Before seeking medical care, call ahead to get instructions from the provider before arriving at the medical office clinic or hospital. Notify them that you are being tested for the virus that causes Covid 19 so that arrangements can be made, as necessary, to prevent transmission to others in the healthcare setting. Next, notify the local health department in your county. If a medical emergency arises and you need to call 911, inform the first responders that you are being tested for the virus that causes Covid 19. Next, notify the local health department in your county. [facility] Discharge - Discharge Clinical Impression: Encounter for screening laboratory testing for COVID-19 virus Condition: Stable Disposition: Home; Selfcare
[2020-06-11 14:12] VITALS: BP 118/87
[2020-06-11 15:10] LABS: A TYPE INFLUENZA AG NEGATIVE (NEGATIVE); B INFLUENZA AG NEGATIVE (NEGATIVE)
== END ==
LOC: RDC 13:40
PROVIDERS: ATTEND Nurse Practitioner Family
DX: Z20.828 Contact with and (suspected) exposure to other viral communicable diseases (principal)
CPT/HCPCS: 87070; 87880; 87635; 87804; 99201; 99211; C9803